=== PATIENT | female | born 1990 | race African-American/Black ===

== ENCOUNTER 2019-05-16 04:55 | Inpatient (IN) ==
[2019-05-16] MEDS ORDERED: BUTORPHANOL 2 MG/ML VIAL IV PRN (05:02)
[2019-05-16] MEDS ORDERED: ONDANSETRON 4 MG/2 ML VIAL IV PRN (05:02)
[2019-05-16] MEDS ORDERED: MEPERIDINE 50 MG/1 ML VIAL IV PRN (05:02)
[2019-05-16] MEDS ORDERED: OXYTOCIN/LR 20 UNIT/1,000 ML BAG IV SCH (05:30)
[2019-05-16] MEDS: LACTATED RINGERS 1,000 ML IV SCH ×2 (05:32→17:23)
[2019-05-16 05:54] LABS: Basophils # 0.1 10*3/uL (0.0-0.2); Basophils % 0.5 % (0.0-0.8); Eosinophils # 0.2 10*3/uL (0.0-0.87); Eosinophils % 1.8 % (0.00-10.9); Hematocrit 33.8 VOL% (35.7-47.0); Hemoglobin 11.1 GM/DL (12.0-16.0); Immature Granulocytes % 1.2 %; Immature Granulocytes Absolute 0.13 #; Lymphocytes # 2.6 10*3/uL (1.4-4.0); Lymphocytes % 23.9 % (21.3-54.2); Mean Corpuscular HGB Conc 32.8 GM/DL (32-36); Mean Corpuscular Volume 83.5 FL (87-102); Monocytes % 7.2 % (1.7-12.7); NRBC # 0.02 10*3/uL; Neutrophils % 65.4 % (38.7-73.9); Platelet Count 141 T/CUMM (130-400); Red Blood Count 4.05 MC/CUMM (3.8-5.5); Red Cell Distribution Width 13.1 % (9.3-17.3)
[2019-05-16 06:17] LABS: Albumin 2.8 G/DL (3.4-5.0); Bilirubin,Total 0.4 MG/DL (0.2-1.0); Calcium 8.8 MG/DL (8.5-10.1); Osmolality,Calculated 272.5 MOS/KG (273-304); Total Protein 6.8 G/DL (6.4-8.3)
[2019-05-16] MEDS ORDERED: ONDANSETRON 4 MG/2 ML VIAL IV ONE (12:14)
[2019-05-16] MEDS ORDERED: diphenhydrAMINE 50 MG/1 ML VIAL IV PRN (12:14)
[2019-05-16] MEDS ORDERED: LACTATED RINGERS 250 ML IV PRN (12:14)
[2019-05-16] MEDS ORDERED: LACTATED RINGERS 1,000 ML IV ONE (12:14)
[2019-05-16] MEDS ORDERED: NALOXONE 0.4 MG/ML VIAL IV PRN (12:14)
[2019-05-16] MEDS ORDERED: PROMETHAZINE 25 MG/1 ML VIAL IM ONE (12:14)
[2019-05-16] MEDS ORDERED: CITRIC ACID/SODIUM CITRATE 30 ML UDCUP PO ONE (12:14)
[2019-05-16] MEDS ORDERED: hydrOXYzine HCL 25 MG/1 ML VIAL IM PRN (12:14)
[2019-05-16] MEDS ORDERED: FAMOTIDINE 20 MG/2 ML VIAL IV ONE (12:14)
[2019-05-16] MEDS ORDERED: METHYLERGONOVINE 0.2 MG/1 ML AMP ONE (12:26)
[2019-05-16] MEDS ORDERED: OXYTOCIN/LR 20 UNIT/1,000 ML BAG IV ONE ×2 (12:26→16:24)
[2019-05-16] MEDS ORDERED: CARBOPROST TROMETHAMINE 250 MCG/ML AMP IM ONE (12:26)
[2019-05-16] MEDS ORDERED: miSOPROStoL 200 MCG TABLET ONE (12:26)
[2019-05-16] MEDS ORDERED: TRANEXAMIC ACID 1,000 MG/10 ML VIAL ONE (12:26)
[2019-05-16] MEDS ORDERED: fentaNYL 2 MCG/ROPIV 0.2% EPID 100 ML EPIDURAL SCH (12:30)
[2019-05-16] MEDS ORDERED: LACTATED RINGERS 1,000 ML IV SCH ×2 (12:30)
[2019-05-16] MEDS: ePHEDrine 50 MG/ML AMP IV PRN ×2 (14:17→14:22)
[2019-05-16 14:45] LABS: Apearance,Urine CLEAR (Clear); Bilirubin,Urine Negative (Negative); Blood, Urine Negative (Negative); Glucose,Urine (UA) Negative (Negative); Ketones,Urine 20 mg/dL (Negative); Mucus,Urine Occasional /LPF (Occasional); Nitrite,Urine Negative (Negative); Protein,Urine Negative; RBC,Urine 1 /HPF (0-4); Urine Color Straw (Yellow); Urine Urobilinogen < 2.0 EU/DL (0.2-1.0); WBC,Urine <1 /HPF (0-6)
[2019-05-16] MEDS ORDERED: CLINDAMYCIN INJ 900 MG in PREMIX 1 EACH IV ONE (16:24)
[2019-05-16] MEDS ORDERED: TISSUE ADHESIVE 1 EACH APPLICATOR TOP ONE (17:51)
[2019-05-16 18:23] LABS: Cord Arterial Blood HCO3 18.3 MMOL/L
[2019-05-16 18:25] LABS: Cord Venous Blood HCO3 20.1 MMOL/L; Cord Venous Blood PCO2 42.2 MMHG; Cord Venous Blood PO2 25.8
[2019-05-16] MEDS ORDERED: PHENYLEPHRINE 1 MG/10 ML SYRINGE IV ONE (18:31)
[2019-05-16] MEDS ORDERED: ALBUMIN 5% 12.5 GM/250 ML VIAL IV ONE (18:31)
[2019-05-16] MEDS ORDERED: MORPHINE 10 MG/10 ML VIAL ONE (18:32)
[2019-05-16] MEDS: diphenhydrAMINE 50 MG/1 ML VIAL IV PRN (23:17)
[2019-05-17] MEDS: KETOROLAC 30 MG/1 ML VIAL IV PRN ×2 (00:07→06:23)
[2019-05-17] MEDS: CLINDAMYCIN INJ 900 MG in PREMIX 1 EACH IV SCH ×2 (01:05→08:32)
[2019-05-17 03:00] LABS: Basophils % 0.3 % (0.0-0.8); Eosinophils # 0.1 10*3/uL (0.0-0.87); Eosinophils % 1.2 % (0.00-10.9); Hematocrit 27.2 VOL% (35.7-47.0); Hemoglobin 8.9 GM/DL (12.0-16.0); Immature Granulocytes % 0.7 %; Immature Granulocytes Absolute 0.08 #; Lymphocytes # 1.6 10*3/uL (1.4-4.0); Lymphocytes % 14.9 % (21.3-54.2); Mean Corpuscular HGB Conc 32.7 GM/DL (32-36); Mean Corpuscular Volume 82.9 FL (87-102); Mean Platelet Volume 11.8 FL (9.6-12.0); Monocytes % 8.3 % (1.7-12.7); Neutrophils % 74.6 % (38.7-73.9); Platelet Count 116 T/CUMM (130-400); Red Blood Count 3.28 MC/CUMM (3.8-5.5); Red Cell Distribution Width 13.2 % (9.3-17.3); White Blood Count 10.9 T/CUMM (4-12)
[2019-05-17] MEDS: diphenhydrAMINE 50 MG/1 ML VIAL IV PRN (03:35)
[2019-05-17] MEDS ORDERED: INFLUENZA VIRUS VACCINE 0.5 ML SYRINGE IM ONE (06:02)
[2019-05-17] MEDS ORDERED: SIMETHICONE CHEW 80 MG TABLET PO PRN (09:16)
[2019-05-17] MEDS: DOCUSATE SODIUM 100 MG CAPSULE PO SCH ×2 (09:33→20:50)
[2019-05-17] MEDS: MAGNESIUM HYDROXIDE SUSP 30 ML UDCUP PO PRN (09:33)
[2019-05-17] MEDS ORDERED: diphenhydrAMINE CAP 25 MG CAPSULE ONE (14:51)
[2019-05-17] MEDS: IBUPROFEN 800 MG TABLET PO PRN (14:58)
[2019-05-17] MEDS ORDERED: diphenhydrAMINE CAP 25 MG CAPSULE PO PRN (14:58)
[2019-05-18] MEDS: IBUPROFEN 800 MG TABLET PO PRN ×3 (04:08→19:55)
[2019-05-18] MEDS: DOCUSATE SODIUM 100 MG CAPSULE PO SCH ×2 (09:18→20:45)
[2019-05-18] MEDS: MAGNESIUM HYDROXIDE SUSP 30 ML UDCUP PO PRN ×2 (09:23→20:45)
[2019-05-18] MEDS ORDERED: FUROSEMIDE 20 MG/2 ML VIAL IV ONE (17:20)
[2019-05-19] MEDS ORDERED: BISACODYL 10 MG SUPP RECTAL PRN (02:22)
[2019-05-19] MEDS: IBUPROFEN 800 MG TABLET PO PRN ×2 (04:12→13:00)
[2019-05-19 07:26] VITALS: BP 110/69
[2019-05-19] MEDS: DOCUSATE SODIUM 100 MG CAPSULE PO SCH (08:45)
[2019-05-19] MEDS ORDERED: DIPH/TET/ACEL PERT BOOSTER VACCINE 0.5 ML VIAL IM ONE (10:18)
[2019-05-19] MEDS ORDERED: FLUCONAZOLE 150 MG TABLET PO ONE (11:00)
== END 2019-05-19 13:30 | disposition home or self-care (01) | DRG 785 ==
LOC: N.LDOUT 04:55 → N.LD 04:56 → N.OB 21:19
PROVIDERS: ADMIT Nurse Practitioner Women's Health; ATTEND Obstetrics & Gynecology